=== PATIENT | female | born 1965 | race Caucasian/White ===

== ENCOUNTER 2017-07-24 09:35 | Outpatient (CLI) | payer OTHER | END 2017-07-24 09:36 | disposition home or self-care (01) | LOC: BICMAMMO 09:35 | PROVIDERS: ATTEND Family Medicine | DX: Z12.31 Encounter for screening mammogram for malignant neoplasm of breast (principal) | CPT/HCPCS: 77067; G0202 ==

== ENCOUNTER 2019-05-17 12:54 | Outpatient (CLI) | payer OTHER ==
--- NOTE | 2019-05-17 14:04 | BD ---
DEXA BONE DENSITY STUDY: Date: 05/17/19 HISTORY: Postmenopausal. FINDINGS: Lumbar Spine: BMD (g/cm2) L1 0.817 T-Score: -1.6 L2 0.915 T-Score: -1.0 L3 0.869 T-Score: -2.0 L4 0.972 T-Score: -0.8 Total 0.893 T-Score: -1.4 Left Femoral Neck: 0.748 T-Score: -0.9 Total Femur: 0.919 T-Score: -0.2 IMPRESSION: 1. Normal bone mineral density of the left hip and osteopenia of the lumbar spine. 2. The 10 year fracture risk for a major osteoporotic fracture is 5.8% and for hip fracture is 0.3%. These fracture probabilities are calculated for an untreated patient. POS: AYSHA
--- NOTE | 2019-05-17 14:19 | MMO ---
Bilateral MAMMO Bilat Screen [facility]. CLINICAL HISTORY: Patient is 53 years old and is seen for screening. The patient has no family history of breast cancer. The patient has no personal history of cancer. VIEWS: The views performed were: bilateral craniocaudal with tomosynthesis and bilateral mediolateral oblique with tomosynthesis. FILMS COMPARED: The present examination has been compared to prior imaging studies performed at [facility] on 03/24/2014, 04/25/2015, 06/12/2016 and 07/24/2017. This study has been interpreted with the assistance of computer-aided detection. MAMMOGRAM FINDINGS: There are scattered fibroglandular densities. There are benign appearing calcifications seen in both breasts. There are no suspicious masses, suspicious calcifications, or new areas of architectural distortion. IMPRESSION: THERE IS NO MAMMOGRAPHIC EVIDENCE OF MALIGNANCY. A ROUTINE FOLLOW-UP MAMMOGRAM IN 1 YEAR IS RECOMMENDED. THE RESULTS OF THIS EXAM WERE SENT TO THE PATIENT. ACR BI-RADS Category 2 - Benign finding MAMMOGRAPHY NOTE: 1. A negative mammogram report should not delay a biopsy if a dominant of clinically suspicious mass is present. 2. Approximately 10% to 15% of breast cancers are not detected by mammography. 3. Adenosis and dense breasts may obscure an underlying neoplasm. Reported by: ZACHARIAH VEGAS MD Electonically Signed: [id number]
== END 2019-05-17 12:55 | disposition home or self-care (01) ==
LOC: BICMAMMO 12:54
PROVIDERS: ATTEND Family Medicine
DX: Z12.31 Encounter for screening mammogram for malignant neoplasm of breast (principal); Z13.820 Encounter for screening for osteoporosis; M85.88 Other specified disorders of bone density and structure, other site
CPT/HCPCS: 77063; 77067; 77080

== ENCOUNTER 2020-09-28 09:18 | Outpatient (CLI) | payer BC | END 2020-09-28 09:19 | disposition home or self-care (01) | LOC: BICMAMMO 09:18 | PROVIDERS: ATTEND Family Medicine | DX: Z12.31 Encounter for screening mammogram for malignant neoplasm of breast (principal); M15.1 Heberden's nodes (with arthropathy) | CPT/HCPCS: 77063; 77067 ==

== ENCOUNTER 2023-09-17 12:52 | Outpatient (CLI) | payer BC | END 2023-09-17 12:53 | disposition home or self-care (01) | LOC: BICMAMMO 12:52 | PROVIDERS: ATTEND Family Medicine | DX: Z12.31 Encounter for screening mammogram for malignant neoplasm of breast (principal); Z80.3 Family history of malignant neoplasm of breast; N63.20 Unspecified lump in the left breast, unspecified quadrant | CPT/HCPCS: 77063; 77067 ==

== ENCOUNTER 2023-09-19 14:59 | Outpatient (CLI) | payer BC | END 2023-09-19 15:00 | disposition home or self-care (01) | LOC: BICULT 14:59 | PROVIDERS: ATTEND Family Medicine | DX: N63.22 Unspecified lump in the left breast, upper inner quadrant (principal); N60.02 Solitary cyst of left breast ==